=== PATIENT | male | born 1990 | race Two or more races ===

== ENCOUNTER 2017-07-04 06:10 | Day surgery (SDC) | payer OTHER ==
[2017-07-04] MEDS ORDERED: ZOFRAN ODT4 MG PO (09:49)
[2017-07-04] MEDS ORDERED: NEURONTIN300 MG PO (09:49)
[2017-07-04] MEDS ORDERED: PERCOCET 5-3251 EACH PO (09:49)
[2017-07-04] MEDS ORDERED: MIRALAX17 GM PO (09:49)
== END 2017-07-04 12:30 | disposition home or self-care (01) ==
LOC: CIR.AMB 06:10
DX: K40.90 Unilateral inguinal hernia, without obstruction or gangrene, not specified as recurrent (principal); D17.6 Benign lipomatous neoplasm of spermatic cord